=== PATIENT | female | born 1940 | race African-American/Black ===

== ENCOUNTER → 2019-03-27 | Outpatient (CLI) | payer OTHER ==
[~2019-03-27] MED LIST: ACCUPRIL40 MG PO; ACETAMINOPHEN325 M1 PO; AMBIEN 5 MG TABL5 M1 PO; ASPIR 8181 MG PO; IBUPROFEN 800800 M1 PO; IMDUR 30 MG TAB30 M1 PO; MAXZIDE 75-501 EACH PO; NITROGLYCERIN0.4 MG SUBLING; PLAVIX 75 MG TA75 M1 PO; PRAVACHOL 20 MG20 M1 PO; PRILOSEC 20 MG20 MG PO; PROZAC 20 MG20 MG PO; TOPROL XL100 MG PO; VESICARE 5 MG TA5 MG PO; ZYRTEC10 M2 PO
--- NOTE | 2019-03-27 14:02 | 2DMMODE ---
[facility] [place] [address] 2 D/M-MODE ECHOCARDIOGRAM Name: HELENA MEJIA ALEJANDRA Room #: REG CL [facility]#: [id number] ������������� Admission: 03/27/19 ������������� Attend Phys: Rajinder Roberson MD Discharge: ��� ������������� ��� Date of : 40 Date of Service: 03/27/19 1402 �� Report #: [id number] �������� ��������������������������������������������[id number] THIS REPORT FOR: //name// APPROVED REPORT Study performed: 03/27/2019 13:20:36 EXAM: Comprehensive 2D, Doppler, and color-flow Echocardiogram Patient Location: Echo lab Status: routine BSA: 1.90 HR: 68 bpm BP: 110/62 mmHg Rhythm: NSR Indications CAD Hypertension/HDD 2D Dimensions RVDd: 24.84 mm IVSd: 10.55 (7-11mm) LVOT Diam: 19.83 (18-24mm) LVDd: 30.77 mm PWd: 12.74 (7-11mm) Ascending Ao: 29.94 (22-36mm) LVDs: 19.87 (25-40mm) Aortic Root: 27.33 mm IVC: 18.00 mm Volumes Left Atrial Volume (Systole) Single Plane 4CH: 23.30 mL Single Plane 2CH: 41.48 mL LA ESV Index: 18.00 mL/m2 Aortic Valve AoV Peak Jonathan.: 1.23 m/s AO Peak Gr.: 6.05 mmHg LVOT Max P.04 mmHg LVOT Max V: 1.01 m/s MALACHI Vmax: 2.52 cm2 Mitral Valve E/A Ratio: 0.6 MV Decel. Time: 373.34 ms MV E Max Jonathan.: 0.62 m/s MV A Jonathan.: 1.03 m/s MV PHT: 108.27 ms [facility] [place] [address] 2 D/M-MODE ECHOCARDIOGRAM Name: ROBERTOOSCARLisette ROBERTS Room #: REG [facility].#: [id number] ������������� Admission: 03/27/19 ������������� Attend Phys: Rajinder Roberson MD Discharge: ��� ������������� ��� Date of : 40 Date of Service: 03/27/19 1402 �� Report #: [id number] �������� ��������������������������������������������[id number] IVRT: 115.34 ms Pulmonary Valve PV Peak Jonathan.: 0.71 m/s PV Peak Gr.: 2.05 mmHg Pulmonary Vein P Vein S: 0.74 m/s P Vein A: 0.55 m/s P Vein D: 0.42 m/s P Vein A Dur.: 120.0 msec P Vein S/D Ratio: 1.76 Tricuspid Valve TR Peak Jonathan.: 2.42 m/s RAP Estimate: 5.00 mmHg TR Peak Gr.: 23.38 mmHg PA Pressure: 28.00 mmHg Left Ventricle The left ventricle is normal size. Mild concentric left ventricular hypertrophy. The left ventricular systolic function is normal. The left ventricular ejection fraction is within the normal range. LVEF is 60-65%. Mild diastolic dysfunction is present (impaired relaxation pattern). Right Ventricle The right ventricle is normal size. The right ventricular systolic function is normal. Atria The left atrium size is normal. The right atrium size is normal. Aortic Valve Aortic valve is mildly calcified. Trace aortic regurgitation. There is no aortic valvular stenosis. Mitral Valve Mild mitral annular calcification. There is no mitral valve regurgitation noted. No evidence of mitral valve stenosis. Tricuspid Valve The tricuspid valve is normal in structure. Mild tricuspid regurgitation. PAP is estimated at 28 mmHg. Pulmonic Valve The pulmonary valve is normal in structure. Trace pulmonic regurgitation. [facility] [address] [place] [address] 2 D/M-MODE ECHOCARDIOGRAM Name: HELENA MEJIA ALEJANDRA Room #: REG CL [facility]#: [id number] ������������� Admission: 03/27/19 ������������� Attend Phys: Rajinder Roberson MD Discharge: ��� ������������� ��� Date of : 40 Date of Service: 03/27/19 1402 �� Report #: [id number] �������� ��������������������������������������������[id number] Great Vessels The aortic root is normal in size. IVC is normal in size and collapses >50% with inspiration. Pericardium There is no pericardial effusion. <Conclusion> The left ventricle is normal size. Mild concentric left ventricular hypertrophy. The left ventricular systolic function is normal. Mild diastolic dysfunction is present (impaired relaxation pattern). The right ventricle is normal size. The left atrium size is normal. Aortic valve is mildly calcified. Trace aortic regurgitation. Mild mitral annular calcification. Mild tricuspid regurgitation. PAP is estimated at 28 mmHg. ��������������������������������������������� <ELECTRONICALLY SIGNED> ���������������������������������������� By: Rajinder Roberson MD ��������������������������������������������� 03/27/191401 01 01 Rajinder Roberson MD /INF
== END ==
LOC: CV 12:50
DX: I08.3 Combined rheumatic disorders of mitral, aortic and tricuspid valves (principal); I11.9 Hypertensive heart disease without heart failure; I25.10 Atherosclerotic heart disease of native coronary artery without angina pectoris

== ENCOUNTER → 2020-03-21 | Outpatient (CLI) | payer OTHER | LOC: SJCVCIMAG 09:30 | DX: R00.0 Tachycardia, unspecified (principal); I25.10 Atherosclerotic heart disease of native coronary artery without angina pectoris; I10 Essential (primary) hypertension; E78.00 Pure hypercholesterolemia, unspecified; R60.9 Edema, unspecified; K21.9 Gastro-esophageal reflux disease without esophagitis; E78.5 Hyperlipidemia, unspecified; Z82.49 Family history of ischemic heart disease and other diseases of the circulatory system; Z87.891 Personal history of nicotine dependence; Z79.82 Long term (current) use of aspirin; Z79.899 Other long term (current) drug therapy ==

== ENCOUNTER → 2020-09-12 | Outpatient (CLI) | payer OTHER | LOC: SJCVC 13:13 | PROVIDERS: ATTEND Internal Medicine Cardiovascular Disease | DX: I25.10 Atherosclerotic heart disease of native coronary artery without angina pectoris (principal); R07.9 Chest pain, unspecified; I10 Essential (primary) hypertension; E78.00 Pure hypercholesterolemia, unspecified; R60.9 Edema, unspecified; Z79.899 Other long term (current) drug therapy; Z87.891 Personal history of nicotine dependence ==

== ENCOUNTER → 2020-12-25 | Outpatient (CLI) | payer OTHER | LOC: SJCVC 12:48 | PROVIDERS: ATTEND Internal Medicine Cardiovascular Disease | DX: I25.10 Atherosclerotic heart disease of native coronary artery without angina pectoris (principal); R07.9 Chest pain, unspecified; I10 Essential (primary) hypertension; E78.00 Pure hypercholesterolemia, unspecified; R60.9 Edema, unspecified; K21.9 Gastro-esophageal reflux disease without esophagitis; Z98.890 Other specified postprocedural states; Z88.8 Allergy status to other drugs, medicaments and biological substances; Z79.82 Long term (current) use of aspirin; Z79.899 Other long term (current) drug therapy; Z87.891 Personal history of nicotine dependence; Z82.49 Family history of ischemic heart disease and other diseases of the circulatory system ==

== ENCOUNTER → 2021-07-02 | Outpatient (CLI) | payer OTHER | LOC: SJCVCIMAG 08:40 | PROVIDERS: ATTEND Internal Medicine Cardiovascular Disease | DX: I11.9 Hypertensive heart disease without heart failure (principal); E78.5 Hyperlipidemia, unspecified; I25.10 Atherosclerotic heart disease of native coronary artery without angina pectoris; E78.00 Pure hypercholesterolemia, unspecified; R60.9 Edema, unspecified; Z79.82 Long term (current) use of aspirin; Z79.899 Other long term (current) drug therapy; Z87.891 Personal history of nicotine dependence; Z88.5 Allergy status to narcotic agent ==

== ENCOUNTER → 2021-07-17 | Outpatient (CLI) | payer OTHER | LOC: SJCVC 08:37 | PROVIDERS: ATTEND Internal Medicine Cardiovascular Disease | DX: I25.10 Atherosclerotic heart disease of native coronary artery without angina pectoris (principal); I10 Essential (primary) hypertension; R60.9 Edema, unspecified; E78.00 Pure hypercholesterolemia, unspecified; K21.9 Gastro-esophageal reflux disease without esophagitis; E78.5 Hyperlipidemia, unspecified; Z88.5 Allergy status to narcotic agent; Z88.8 Allergy status to other drugs, medicaments and biological substances; Z79.82 Long term (current) use of aspirin; Z79.899 Other long term (current) drug therapy; Z87.891 Personal history of nicotine dependence ==

== ENCOUNTER → 2021-08-20 | Outpatient (CLI) | payer OTHER | LOC: SJCVC 09:09 | PROVIDERS: ATTEND Internal Medicine Cardiovascular Disease | DX: E78.00 Pure hypercholesterolemia, unspecified (principal) ==

== ENCOUNTER → 2022-01-02 | Outpatient (CLI) | payer OTHER | LOC: SJCVC 13:23 | PROVIDERS: ATTEND Internal Medicine Cardiovascular Disease | DX: I25.10 Atherosclerotic heart disease of native coronary artery without angina pectoris (principal); I10 Essential (primary) hypertension; E78.00 Pure hypercholesterolemia, unspecified; R60.9 Edema, unspecified; E11.9 Type 2 diabetes mellitus without complications; G21.9 Secondary parkinsonism, unspecified; E78.5 Hyperlipidemia, unspecified; Z87.891 Personal history of nicotine dependence; Z79.82 Long term (current) use of aspirin; Z79.899 Other long term (current) drug therapy; Z88.5 Allergy status to narcotic agent; Z88.8 Allergy status to other drugs, medicaments and biological substances ==